=== PATIENT | female | born 1940 | race Caucasian/White ===

== ENCOUNTER → 2018-06-05 11:20 | Outpatient (CLI) | payer MEDICARE, SELFPAY ==
--- NOTE | 2018-06-05 11:22 | CA_ITS ---
PROCEDURE: 2-D M-mode and color Doppler study INDICATIONS FOR THE TEST: Chest pain + COPD + Heart Murmur Tobacco Smoking+ Palpitations Fatigue Syncope Edema Hypertension Diabetes Mellitus Rheumatic Fever SOB+LORENZ Obesity Hyperlipidemia Family History HD Additional History pacer,a-fib,ckd PATIENT INFORMATION HEIGHT: 60 WEIGHT:175 GENDER: Female B/P:122/64 2-D/M-MODE INTERPRETATION: 2-D MEASUREMENTS OBSERVED VALUES IN CMS Right Ventricular Dimension (RVDd) 2.0 Interventricular Septum (Thickness)(IVsd) 1.0 Left Ventricular Internal Dimensions(LVIDd) 5.0 Left Ventricular Posterior Wall (Thickness)(LVPWd) 0.9 Aortic Root 2.5 Aortic Cusp Separation 1.6 Left Atrial Dimensions (LAD) 3.3 2D 1. Left atrium is mildly enlarged, left ventricle is normal size, left ventricle wall thickness is upper limit of normal, there is preserved left ventricular systolic function, visually estimated ejection fraction of 55%, there is abnormal septal motion. There is no obvious regional wall motion abnormality, endocardial surfaces are poorly visualized. 2. The right atrium and right ventricle are mildly enlarged with normal contractility, there is a pacemaker lead seen right atrium and right ventricle. 3. The aortic valve is thickened and calcified leaflet continue to display mobility. 4. The mitral and tricuspid valve leaflets are minimally thickened and calcified. The pulmonic valve is poorly visualized. 6. No significant pericardial effusion noted. DOPPLER INTERROGATION: Doppler interrogation of the aortic, mitral and tricuspid valvular presence of mild mitral and tricuspid regurgitation, tricuspid regurgitation jet velocity is inadequate for calculation of the right ventricular systolic pressure, diastolic parameters are inconclusive. CONCLUSION: 1. Biatrial enlargement, normal left ventricular size, visually estimated ejection fraction 55%, there is abnormal septal motion, there is no obvious regional wall motion abnormality, diastolic parameters are inconclusive. 2. Mildly enlarged right ventricle with normal contractility. 3. Mild mitral and tricuspid regurgitation 4. No significant pericardial effusion noted.
--- NOTE | 2018-06-05 11:22 | NM_ITS ---
CARDIOLITE SPECT MYOCARDIAL PERFUSION LEXISCAN, REST AND STRESS: History: Hypertension, hyperlipidemia, diabetes, chronic tobacco use, family history, chest pain, shortness of breath Procedure: Patient received a 0.4 mg of intravenous Lexiscan, resting heart rate was 69 bpm resting blood pressure 144/77, with Lexiscan maximum heart rate achieved 70 bpm which is less than 85% of the maximum predicted heart rate and a blood pressure was 121/60. With Lexiscan patient complained of nausea Electrocardiogram: Resting electrocardiogram showed electronically paced rhythm, with Lexiscan there is less than 1.[address] segment depression noted from the baseline EKG. The EKG portion of the Lexiscan Myoview is nondiagnostic. Cardiac stress and resting SPECT images: Cardiac stress and resting SPECT images were obtained using technetium 99 Myoview 31.6 mCi stress and 11.4 mCi at rest. Gated SPECT further analysis of segmental wall motion and calculation of the ejection fraction also done. Cardiac stress and resting SPECT images show uniform myocardial activity without segmental perfusion abnormality, computer derived ejection fraction is extensive 64% with no regional wall motion abnormality, right ventricle is normal size and contractility. Conclusion: 1. The EKG portion of the Lexiscan Myoview is nondiagnostic. 2. No scintigraphic evidence of reversible ischemia seen, computer derived ejection fraction is 64% with no regional wall motion abnormality, right ventricle is normal size and contractility. 3. Normal Lexiscan Myoview study.
--- NOTE | 2018-06-05 13:41 | HMH.ITSHM ---
Current Home Medications as stated by this patient Lisa Mata or safety representative. []ROSUVASTATIN PANTOPRAZOLE MULTIVITAMIN MONTELUKAST METFORMIN LORATADINE LISINOPRIL GLUCOSAMINE FEVUXOSTAT BISOPROLOL ASA AMLODIPINE
== END ==
PROVIDERS: Visit Provider Internal Medicine
DX: R06.00 Dyspnea, unspecified; E11.9 Type 2 diabetes mellitus without complications; I11.9 Hypertensive heart disease without heart failure; I20.9 Angina pectoris, unspecified; I48.91 Unspecified atrial fibrillation; J44.9 Chronic obstructive pulmonary disease, unspecified; N18.2 Chronic kidney disease, stage 2 (mild); Z95.0 Presence of cardiac pacemaker; F17.200 Nicotine dependence, unspecified, uncomplicated; Z79.84 Long term (current) use of oral hypoglycemic drugs
CPT/HCPCS: 78452; 93017; 93306; A9502; J2785

== ENCOUNTER → 2019-07-16 12:15 | Outpatient (CLI) | payer MEDICARE, SELFPAY ==
--- NOTE | 2019-07-16 12:35 | XR_ITS ---
PROCEDURE: XR LUMBAR SPINE 2-3V CLINICAL INDICATION: back pain Bilateral back pain COMPARISON: No exams were available for comparison FINDINGS: Minimal levocurvature of the lumbar spine. There is normal alignment. There is multilevel degenerative disc disease T12-S1 most severe at L2-L3. Multilevel ventral osteophytes are present largest at L2-L3. Facet arthritic changes are also noted at L4-L5 and S1. Incidental note made degenerative changes of the SI joints and hips. No acute fracture or dislocation. There is generalized vascular calcification. IMPRESSION: Multilevel lumbar spondylosis most severe at L2-L3 Dictated by: Patricio Rodriguez MD 07/16/2019 13:49 Electronically signed by Patricio Rodriguez MD in [place] 07/16/2019 13:49
--- NOTE | 2019-07-16 13:31 | NM_ITS ---
PROCEDURE: NM BONE SCAN WHOLE BODY CLINICAL INDICATION: back pain Back pain, hip pain, history of breast cancer COMPARISON: Lumbar spine, thoracic spine, and chest x-ray of 07/16/2019 TECHNIQUE: Dose: 26.5 mCi technetium MDP FINDINGS: There are multiple foci of increased activity in the cervical, thoracic, and lumbar spine. The patient does have degenerative changes involving these areas on the radiographs. One cannot exclude the possibility of metastatic disease. There is slight increased activity in the left 4th rib and right 4th rib, right ischial region, shoulders, knees, and ankles IMPRESSION: Multiple foci of increased activity within the cervical thoracic and lumbar spine. This is nonspecific and could very well be due to degenerative changes noted on the radiographs. Cannot exclude the possibility of metastatic disease. MRI of the spine without and with contrast may provide further evaluation. Small focus of increased activity is present in the right ischial region nonspecific. Dictated by: Patricio Rodriguez MD 07/17/2019 09:35 Electronically signed by Patricio Rodriguez MD in [place] 07/17/2019 09:35
--- NOTE | 2019-07-16 14:15 | HMH.ITSHM ---
Current Home Medications as stated by this patient Lisa Mata or medical claims representative. [] ROSUVASTATIN PANTOPRAZOLE METFORMN LISINOPRIL BISOPROLOL AMLODIPINE
--- NOTE | 2019-07-16 17:09 | XR_ITS ---
PROCEDURE: XR CHEST 2V CLINICAL HISTORY: HOT SPOT RIBS ON NUC SCAN Abnormal bone scan, breast cancer, pain in the spine COMPARISON: Bone scan of the same day FINDINGS: Bipolar pacemaker is present from left subclavian approach. Normal heart size. Atelectatic or fibrotic change left lung base. Surgical clips overlie the right lower thoracic region. No acute bony anomalies. Specifically no bony lytic process of the ribs that would correspond to the slight increased activity on the bone scan. There are degenerative changes in the thoracic spine. No acute bony abnormalities. IMPRESSION: Pacemaker present with left basilar atelectasis. No bony destructive process apparent Dictated by: Patricio Rodriguez MD 07/17/2019 09:36 Electronically signed by Patricio Rodriguez MD in [place] 07/17/2019 09:36
--- NOTE | 2019-07-16 17:10 | XR_ITS ---
PROCEDURE: XR THORACIC SPINE 2V CLINICAL INDICATION: MID THORACIC BACK PAIN Mid and low back pain, history of breast cancer with abnormal bone scan COMPARISON: No exams were available for comparison FINDINGS: No fracture or dislocation. Multilevel thoracic spondylosis is present with degenerative disc disease and endplate osteophytes. No bony destructive process evident. IMPRESSION: Thoracic spondylosis, no bony lytic or blastic lesions apparent Dictated by: Patricio Rodriguez MD 07/17/2019 09:41 Electronically signed by Patricio Rodriguez MD in [place] 07/17/2019 09:41
== END ==
PROVIDERS: Visit Provider Internal Medicine
DX: M54.9 Dorsalgia, unspecified (principal); R06.02 Shortness of breath
CPT/HCPCS: 71046; 72070; 72100; 78306; A9503

== ENCOUNTER → 2019-08-06 13:33 | Outpatient (POV) | payer MEDICARE, SELFPAY ==
[2019-08-06 14:10] VITALS: BP 125/74; PULSE 71; RESP 18; O2SAT 98; BMI 26.9
--- NOTE | 2019-08-06 16:51 | HMH.PMCON ---
Assessment and Plan (1) Spinal stenosis, lumbar region with neurogenic claudication Current visit: Yes Status: Acute Category: Medical Code(s): M48.062 - Spinal stenosis, lumbar region with neurogenic claudication - Assessment and plan all Dx Assessment and Plan for all problems:: We will send the patient for an MRI to help determine pathology. She may be a mild candidate. Patient and I also discussed an epidurogram potentially we will start with an MRI and then move forward with the plan of care. She has been instructed to call the office if she has any issues prior to her next appointment. Dr. Walden has reviewed this note and agrees with this plan of care. This note was dictated using voice recognition software and may contain errors or omissions HPI - Data of Consult Consult date: 08/06/19 Requesting Physician: Diamond Swain APRN Primary Care Provider: Timothy Morton MD - Consult Narrative Reason for consult: Back pain History of present illness: Ms. Mata is a 79 year old female who presents today for consultation regards to her low back and leg pain. Patient rates her pain today a 5 out of 10 mostly in her low back it is when she is standing and when she is walking. Patient does not have pain when she is sitting and resting. She notices that she has to lean forward for relief she has to lean over her shopping cart. Patient does not have a recent MRI. She does have a bone scan showing degenerative changes in her back. We will send her for an MRI of her lumbar spine. She has done chiropractic therapy with no relief. She is currently on Eliquis. CC: Diamond Swain APRN [facility] History I have reviewed the patient's past medical history: Yes Medical History: Reports:: Atrial Fibrillation, Cancer (R BREAST), Chronic Obstructive Pulmonary Disease (COPD), Coronary Artery Disease, Diabetes Mellitus Type 2, Hyperlipidemia, Hypertension, Internal Pacemaker, Myocardial Infarction, Renal Disease Denies:: Diabetes Mellitus Type 1, MRSA *Have you ever received a pneumonia vaccine?: Yes *Have you received a flu vaccine this season?: Yes Other Medical History: Reports: Anemia, Arthritis, Thyroid Disease Other Surgeries: Yes: Angioplasty (10/25/12 no stents), Cardiac Catheterization (10/25/16), Colonoscopy, Hysterectomy-Partial, Pacemaker Amputation: No Fractures: No - *Social History Smoking Status: Never smoker Tobacco Type: cigarettes # Packs/Day (cigarettes): 1 Alcohol Intake: never Substance Use Type: denies use *Occupational Status:: other Housing: house Household Members: spouse *Travel in the last 8 weeks: None Family Hx:: Unable to obtain Review of Systems - Review of Systems ROS General: no recent weight change, no fever, no sleep disturbances Respiratory: no cough, no shortness of air, no recurring pulmonary infections Cardiovascular/Peripheral Vascular: No chest pain, No palpitations, no edema, no shortness of breath. Gastrointestinal: no new onset incontinence, normal bowel movements reported Genitourinary: no new onset incontinence Musculoskeletal: Back pain, leg pain Psychiatric: normal mood/ affect Neurological: Weakness have bilateral lower extremities when standing and walking, [denies new onset balance issues] Meds Home Medications Medication Instructions Recorded Confirmed Type furosemide 20 mg tablet 20 mg PO DAILY PRN tab 05/02/17 02/12/19 History loratadine 10 mg tablet 10 mg PO DAILY tab 05/02/17 02/12/19 History metformin 500 mg tablet 500 mg PO BID 05/02/17 02/12/19 History multivitamin 1 tab PO QAM 05/02/17 02/12/19 History amlodipine 10 mg tablet 10 mg PO DAILY #30 tab 05/04/17 02/12/19 Rx bisoprolol fumarate 10 mg tablet 10 mg PO DAILY #30 tab 05/04/17 02/12/19 Rx febuxostat 40 mg tablet 40 mg PO DAILY #30 tab 05/04/17 02/12/19 Rx lisinopril 20 mg tablet 20 mg PO BID #30 tab 05/04/17 02/12/19 Rx montelukast 10 mg tablet 10 mg PO QHS #30 tab 05/04/1702/12
== END ==
PROVIDERS: PCP Internal Medicine; Visit Provider Clinical Nurse Specialist Family Health
DX: M48.062 Spinal stenosis, lumbar region with neurogenic claudication (principal)
CPT/HCPCS: 99202